=== PATIENT | female | born 1945 | race African-American/Black ===

== ENCOUNTER 2019-04-13 11:39 | Emergency (ER) | payer MEDICARE, OTHER ==
[~2019-04-13] VITALS: Ht 162.6 cm; Wt 90.0 kg
[~2019-04-13 11:39] MED LIST: ALBU18HF2 IH; ALBUTEROL; AMLO5TAB4 PO; AMLODIPINE; ASPI-1497 PO; ATEN100T PO; ATENOLOL; BECL8.7A6 IH; CLON0.1T PO; LORA10TA7 PO; LOSA1TAB37 PO
[2019-04-13] MEDS ORDERED: SODIUM CHLORIDE 0.9% 1,000 ML IV ONE ×2 (12:37→16:02)
[2019-04-13] MEDS ORDERED: MORPHINE SULFATE 4 MG/ML CPJ (NOT FOR IM USE) IV STA (12:37)
[2019-04-13] MEDS ORDERED: ONDANSETRON HCL 4MG/2ML INJ IV STA (12:37)
[2019-04-13 13:28] LABS: BASOPHILS % 0.3 % (0.0-2.0); EOSINOPHILS % 1.8 % (0.0-5.0); HEMOGLOBIN. 13.2 g/dL (12.0-16.0); MEAN CORPUSCULAR HEMOGLOBIN 28.5 pg (28.0-32.0); MEAN CORPUSCULAR VOLUME 84.4 fL (81.0-99.0); MONOCYTES % 5.6 % (2.0-8.0); NEUTROPHILS % 75.3 % (40.0-76.0); PLATELET 321 x1000/uL (130-400); RED BLOOD CELL COUNT 4.63 mill/uL (4.2-5.4); RED CELL DISTRIBUTION WIDTH 13.4 % (11.6-14.6)
[2019-04-13 13:37] LABS: CHLORIDE 105 mEq/L (98-107)
[2019-04-13 13:39] LABS: PARTIAL THROMBOPLASTIN TIME 24.3 sec (23.4-31.0); PROTHROMBIN TIME 10.8 sec (9.6-11.0)
[2019-04-13] MEDS ORDERED: METRONIDAZOLE 500 MG PREMIX 100 ML IV ONE (14:45)
[2019-04-13] MEDS ORDERED: LEVOFLOXACIN 750MG PREMIX 150 ML IV ONE (14:45)
[2019-04-13] MEDS ORDERED: MORPHINE SULFATE 4 MG/ML CPJ (NOT FOR IM USE) IV ONE (15:15)
[2019-04-13 17:07] LABS: CLARITY URINE CLEAR (CLEAR); COLOR URINE YELLOW (YELLOW); KETONES URINE NEGATIVE (NEGATIVE); LEUKOCYTE ESTERASE URINE NEGATIVE (NEGATIVE); NITRITE URINE NEGATIVE (NEGATIVE); OCCULT BLOOD URINE NEGATIVE (NEGATIVE); PH URINE 7.5 (4.5-8.0); PROTEIN URINE TRACE (NEGATIVE); SPECIFIC GRAVITY URINE 1.016 (1.005-1.030); UROBILINOGEN URINE 0.2 E.U./dL (0.2-1.0)
[2019-04-13 21:47] VITALS: BP 169/71
== END 2019-04-13 21:54 | disposition short-term general hospital (02) ==
LOC: ER 11:48
DX: K62.5 Hemorrhage of anus and rectum (principal); K57.32 Diverticulitis of large intestine without perforation or abscess without bleeding; I10 Essential (primary) hypertension; E11.9 Type 2 diabetes mellitus without complications; J45.909 Unspecified asthma, uncomplicated; Z79.82 Long term (current) use of aspirin; Z88.8 Allergy status to other drugs, medicaments and biological substances
CPT/HCPCS: 36415; 71045; 74176; 80053; 81003; 82270; 82962; 83690; 84484; 85025; 85610; 85730; 86850; 86900; 86901; 93005; 96365; 96368; 96375; 96376; 99285; J1956; J2270; J2405; J3490; J7030